=== PATIENT | male | born 1955 | race Caucasian/White ===

== ENCOUNTER 2016-09-12 06:28 | Day surgery (SDC) | payer BC, MEDICAID, OTHER ==
[2016-09-12] MEDS ORDERED: Sodium Chloride 0.9% 1,000 ML IV SCH (06:45)
[2016-09-12] MEDS ORDERED: Propofol 200 MG/20 ML SDV ONE (07:42)
[2016-09-12] MEDS ORDERED: Midazolam 1 MG/ML 2 ML SDV ONE (07:42)
[2016-09-12] MEDS ORDERED: fentaNYL 100 MCG/2 ML SDV ONE (07:42)
[2016-09-12 09:27] VITALS: BP 118/76
--- NOTE | 2016-09-17 07:36 | OR ---
DATE OF PROCEDURE: 09/12/2016 PROCEDURE PERFORMED: Colonoscopy. FINDINGS: Ascending colon polyp, 5 mm, completely removed using cold biopsy forceps. COMPLICATIONS: None. PORTABLE GRINDING MACHINE OPERATOR: None. ANESTHESIA: MAC. RISK: Risks, benefits, alternatives, and limitations including, but not limited to infection, bleeding, and perforation were explained to the patient, and he wished to proceed. PROCEDURE IN DETAIL: The patient was placed in left lateral decubitus position. Digital rectal exam was performed and was without abnormality. Scope was introduced and advanced atraumatically to the ileocecal valve. The scope was brought back to the ascending, transverse, descending colon, and retroflexed. The aforementioned polyp was identified and completely removed. No other abnormalities were noted. The patient tolerated the procedure well. Chriss Figueroa MD /[id number]
== END 2016-09-12 09:38 | disposition home or self-care (01) ==
LOC: JP.SDS 06:28
PROVIDERS: ATTEND Surgery
PROC: 0DBK8ZX Excision of Ascending Colon, Via Natural or Artificial Opening Endoscopic, Diagnostic (ICD-10-PCS; principal; 2016-09-12)
DX: Z12.11 Encounter for screening for malignant neoplasm of colon (principal); D12.2 Benign neoplasm of ascending colon
CPT/HCPCS: 45380; J2250; J2704; J3010; J7040; 88305

== ENCOUNTER 2020-01-07 06:37 | Day surgery (SDC) | payer MEDICAID ==
[2020-01-07] MEDS ORDERED: Sodium Chloride 0.9% 1,000 ML IV SCH (07:00)
[2020-01-07] MEDS ORDERED: Midazolam 1 MG/ML 2 ML SDV ONE (07:39)
[2020-01-07] MEDS ORDERED: Propofol 200 MG/20 ML SDV ONE (07:39)
[2020-01-07] MEDS ORDERED: fentaNYL 100 MCG/2 ML SDV ONE (07:39)
[2020-01-07 09:20] VITALS: PULSE 62
[2020-01-07 09:25] VITALS: BP 128/81
--- NOTE | 2020-01-07 09:56 | OR ---
DATE OF PROCEDURE: 01/07/2020 SURGEON: Chriss Figueroa MD PROCEDURE: Colonoscopy. FINDINGS: Ascending colon polyp, approximately 5 mm, completely removed using cold biopsy forceps. COMPLICATIONS: None. RUBBER FLAP TUBER MACHINE OPERATOR: None. ANESTHESIA: MAC. RISKS: Risks, benefits, alternatives, and limitations including, but not limited to infection, bleeding, and perforation were explained to the patient, who wished to proceed. PROCEDURE IN DETAIL: The patient was placed in left lateral decubitus position. Digital rectal exam was performed without abnormality. Scope was introduced and advanced atraumatically to the ileocecal valve. Scope was brought back through the ascending, transverse, descending colon, and retroflexed. The patient has some very mild diverticula without evidence of diverticulitis or bleeding. The aforementioned polyp was identified and completely removed. No abnormalities on retroflexion. Greater than 8 minutes was spent removing the scope. Chriss Figueroa MD /[id number]
== END 2020-01-07 09:29 | disposition home or self-care (01) ==
LOC: JP.SDS 06:37
PROVIDERS: ATTEND Surgery
DX: Z12.11 Encounter for screening for malignant neoplasm of colon (principal); K57.30 Diverticulosis of large intestine without perforation or abscess without bleeding; K63.5 Polyp of colon; I10 Essential (primary) hypertension; E66.9 Obesity, unspecified; Z86.010 Personal history of colon polyps; Z68.31 Body mass index [BMI] 31.0-31.9, adult
CPT/HCPCS: 45380; J2250; J2704; J3010; J7030